=== PATIENT | male | born 1990 | race African-American/Black ===

== ENCOUNTER 2017-12-15 12:36 | Emergency (ER) | payer OTHER ==
[2017-12-15 13:23] VITALS: PULSE 76
[2017-12-15] MEDS ORDERED: NS 1,000 ML IV ONE (15:39)
--- NOTE | 2017-12-15 15:42 | EDPHY ---
H & P Stated Complaint: Peroneal pain Time Seen by Provider: 12/15/17 15:30 HPI/ROS: CHIEF COMPLAINT: Peroneal and suprapubic pain HISTORY OF PRESENT ILLNESS: The patient is a 27 year old man who comes to the emergency department complaining of perineal and suprapubic pain over the last few days. No fever. No discharge or recent sexual behavior. He noticed some mild dysuria 3 days ago but has not since. No hematuria. No back or flank pain. He presented to the urgent care today and commented that them that he also had some mild left testicular pain. They referred him to the ER for ultrasound. he denies any trauma. REVIEW OF SYSTEMS: Constitutional: denies: chills, fever, recent illness, recent injury EENTM: denies: blurred vision, double vision, nose congestion Respiratory: denies: cough, shortness of breath Cardiac: denies: chest pain, irregular heart rate, lightheadedness, palpitations Gastrointestinal/Abdominal: denies: abdominal pain, diarrhea, nausea, vomiting, blood streaked stools Genitourinary: denies: dysuria, frequency, hematuria, pain Musculoskeletal: denies: joint pain, muscle pain Skin: denies: lesions, rash, jaundice, bruising Neurological: denies: headache, numbness, paresthesia, tingling, dizziness, weakness Hematologic/Lymphatic: denies: blood clots, easy bleeding, easy bruising Immunologic/allergic: denies: HIV/AIDS, transplant EXAM: GENERAL: Well-appearing, well-nourished and in no acute distress. HEAD: Atraumatic, normocephalic. EYES: Pupils equal round and reactive to light, extraocular movements intact, sclera anicteric, conjunctiva are normal. ENT: TMs normal, nares patent, oropharynx clear without exudates. Moist mucous membranes. NECK: Normal range of motion, supple without lymphadenopathy or JVD. LUNGS: Breath sounds clear to auscultation bilaterally and equal. No wheezes rales or rhonchi. HEART: Regular rate and rhythm without murmurs, rubs or gallops. ABDOMEN: Soft, nontender, normoactive bowel sounds. No guarding, no rebound. No masses appreciated. : Normal testicular exam, no palpable hernia, normal cremasteric. No erythema, no discharge with milking, no perineal tenderness BACK: No CVA tenderness, no spinal tenderness, step-offs or deformities EXTREMITIES: Normal range of motion, no pitting or edema. No clubbing or cyanosis. NEUROLOGICAL: Cranial nerves II through XII grossly intact. Normal speech, normal gait. 5/5 strength, normal movement in all extremities, normal sensation PSYCH: Normal mood, normal affect. SKIN: Warm, dry, normal turgor, no visible rashes or lesions. Source: Patient Exam Limitations: No limitations - Personal History Current Tetanus/Diphtheria Vaccine: No - Medical/Surgical History Hx Asthma: No Hx Chronic Respiratory Disease: No Hx Diabetes: No Hx Cardiac Disease: No Hx Renal Disease: No Hx Cirrhosis: No Hx Alcoholism: No Hx HIV/AIDS: No Hx Splenectomy or Spleen Trauma: No Other PMH: denies - Family History Significant Family History: No pertinent family hx - Social History Smoking Status: Former smoker Alcohol Use: Sober Constitutional: Initial Vital Signs Temperature (C) 37.1 C 12/15/17 13:20 Heart Rate 76 12/15/17 13:20 Respiratory Rate 17 12/15/17 13:20 Blood Pressure 140/83 H 12/15/17 13:20 O2 Sat (%) 95 12/15/17 13:20 O2 Delivery Mode Room Air Allergies/Adverse Reactions: No Known Allergies Allergy (Unverified 12/15/17 13:20) Home Medications: Medication Instructions Recorded levOFLOXACIN [levAQUIN] 750 mg PO DAILY #10 tab 12/15/17 Medical Decision Making - Diagnostics Imaging Results: Imaging Impressions Testicular Ultrasound 12/15/17 15:39 Impression: 1. Normal sonographic appearance of each testis, with no mass or torsion. 2. Mild left epididymitis at the level of the tail. Findings were discussed with HARVINDER HUGHES MD at 17:24, on 12/15/2017. Imaging: Discussed imaging studies w/ call or contact centre coach Radiologist ED Course/Re-evaluation: 5:20 p.m. performed rectal exam. The patient's prostate is not boggy and is nontender. Ultrasound reveals epididymitis. I will start him on antibiotics. He denies recent sexual contact. Differential Diagnosis: Partial list of the Differential diagnosis considered include but were not limited to; prostatitis, urinary tract infection, epididymitis and although unlikely based on the history and physical exam, I also considered kidney stone , torsion, hernia. I discussed these differential diagnoses and the plan with the patient as well as the usual and expected course. The patient understands that the diagnosis is provisional and that in medicine we are not always correct and that further workup is often warranted. Usual and customary warnings were given. All of the patient's questions were answered. The patient was instructed to return to the emergency department should the symptoms at all worsen or return, otherwise to followup with the physician as we discussed. - Data Points Laboratory Results: Laboratory Results 12/15/17 16:05 12/15/17 16:05 12/15/17 12/15/17 12/15/17 16:55 16:05 16:05 WBC 6.87 10^3/uL 10^3/uL (3.80-9.50) RBC 5.14 10^6/uL 10^6/uL (4.40-6.38) Hgb 15.5 g/dL g/dL (13.7-17.5) Hct 45.2 % % (40.0-51.0) MCV 87.9 fL fL (81.5-99.8) MCH 30.2 pg pg (27.9-34.1) MCHC 34.3 g/dL g/dL (32.4-36.7) RDW 12.0 % % (11.5-15.2) Plt Count 152 10^3/uL 10^3/uL (150-400) MPV 11.7 fL fL (8.7-11.7) Neut % (Auto) 55.4 % % (39.3-74.2) Lymph % (Auto) 31.6 % % (15.0-45.0) [place] % (Auto) 7.9 % % (4.5-13.0) Eos % (Auto) 4.1 % % (0.6-7.6) Baso % (Auto) 0.9 % % (0.3-1.7) Nucleat RBC Rel Count 0.0 % % (0.0-0.2) Absolute Neuts (auto) 3.81 10^3/uL 10^3/uL (1.70-6.50) Absolute Lymphs (auto) 2.17 10^3/uL 10^3/uL (1.00-3.00) Absolute Monos (auto) 0.54 10^3/uL 10^3/uL (0.30-0.80) Absolute Eos (auto) 0.28 10^3/uL 10^3/uL (0.03-0.40) Absolute Basos (auto) 0.06 10^3/uL 10^3/uL (0.02-0.10) Absolute Nucleated RBC 0.00 10^3/uL 10^3/uL (0-0.01) Immature Gran % 0.1 % % (0.0-1.1) Immature Gran # 0.01 10^3/uL 10^3/uL (0.00-0.10) Sodium 142 mEq/L mEq/L (135-145) Potassium 4.4 mEq/L mEq/L (3.5-5.2) Chloride 107 mEq/L mEq/L (97-110) Carbon Dioxide 21 mEq/l L mEq/l (22-31) Anion Gap 14 mEq/L mEq/L (8-16) BUN 15 mg/dL mg/dL (7-23) Creatinine 0.9 mg/dL mg/dL (0.7-1.3) Estimated GFR > 60 Glucose 76 mg/dL mg/dL (70-100) Calcium 9.9 mg/dL mg/dL (8.5-10.4) Urine Color YELLOW Urine Appearance CLEAR Urine pH 6.0 (5.0-7.5) Ur Specific [place] 1.025 (1.002-1.030) Urine Protein NEGATIVE (NEGATIVE) Urine Ketones NEGATIVE (NEGATIVE) Urine Blood 1+ H (NEGATIVE) Urine Nitrate NEGATIVE (NEGATIVE) Urine Bilirubin NEGATIVE (NEGATIVE) Urine Urobilinogen NEGATIVE EU EU (0.2-1.0) Ur Leukocyte Esterase NEGATIVE (NEGATIVE) Urine RBC 1-3 /hpf /hpf (0-3) Urine WBC NONE SEEN /hpf /hpf (0-3) Ur Epithelial Cells NONE SEEN /lpf /lpf (NONE-1+) Urine Mucus TRACE /lpf /lpf (NONE-1+) Urine Glucose NEGATIVE (NEGATIVE) C.trachomatis RNA (TMA) N.gonorrhoeae RNA (TMA) 12/15/17 12/15/17 15:40 15:40 WBC RBC Hgb Hct MCV MCH MCHC RDW Plt Count MPV Neut % (Auto) Lymph % (Auto) [place] % (Auto) Eos % (Auto) Baso % (Auto) Nucleat RBC Rel Count Absolute Neuts (auto) Absolute Lymphs (auto) Absolute Monos (auto) Absolute Eos (auto) Absolute Basos (auto) Absolute Nucleated RBC Immature Gran % Immature Gran # Sodium Potassium Chloride Carbon Dioxide Anion Gap BUN Creatinine Estimated GFR Glucose Calcium Urine Color TNP Urine Appearance TNP Urine pH TNP Ur Specific [place] TNP Urine Protein TNP Urine Ketones TNP Urine Blood TNP Urine Nitrate TNP Urine Bilirubin TNP Urine Urobilinogen TNP Ur Leukocyte Esterase TNP Urine RBC TNP Urine WBC TNP Ur Epithelial Cells TNP Urine Mucus Urine Glucose TNP C.trachomatis RNA (TMA) Pending N.gonorrhoeae RNA (TMA) Pending Medications Given: Discontinued Medications Sodium Chloride (Ns) 1,000 mls @ 0 mls/hr IV ONCE ONE; Wide Open PRN Reason: Protocol Stop: 12/15/17 15:40 Last Admin: 12/15/17 16:03 Dose: 1,000 mls Levofloxacin (Levaquin) 750 mg PO EDNOW ONE PRN Reason: Protocol Stop: 12/15/17 17:32 Last Admin: 12/15/17 18:13 Dose: 750 mg Departure - Departure Disposition: Home, Routine, Self-Care Clinical Impression: Epididymitis, left Condition: Fair Instructions: Epididymitis (ED) Referrals: NONE *PRIMARY CARE P,. [Primary Care Provider] - As per Instructions Uday Hameed MD [Medical Doctor] - As per Instructions Prescriptions: levOFLOXACIN [levAQUIN] 750 mg PO DAILY #10 tab
[2017-12-15 16:40] LABS: PLATELET COUNT 152 10^3/uL (150-400)
[2017-12-15 18:20] VITALS: BP 142/91; RESP 16; TEMP 97.7; O2SAT 96
[2017-12-16 10:46] LABS: GC AMPLIFICATION GENPROBE NEGATIVE (NEGATIVE)
== END 2017-12-15 18:24 | disposition home or self-care (01) ==
DX: N45.1 Epididymitis (principal); E86.9 Volume depletion, unspecified; Z87.891 Personal history of nicotine dependence